=== PATIENT | female | born 1995 | race Caucasian/White ===

== ENCOUNTER 2022-08-26 16:08 | Outpatient (OUT) | payer OTHER, SELFPAY ==
[2022-08-26 17:02] LABS: HCG Quantitative 11 mIU/mL
== END 2022-08-26 16:09 ==
LOC: LAB 16:13
PROVIDERS: PCP Obstetrics & Gynecology; Visit Provider Obstetrics & Gynecology
DX: O03.9 Complete or unspecified spontaneous abortion without complication (principal)
CPT/HCPCS: 36415; 84702

== ENCOUNTER 2022-11-03 20:41 | Outpatient (REF) | payer OTHER, SELFPAY ==
[2022-11-09 15:10] LABS: Age Gdln ACOG Testing Note (.); IGP, rfx Aptima HPV ASCU Note (.)
== END 2022-11-03 20:42 | disposition home or self-care (01) ==
LOC: LAB 20:41
PROVIDERS: PCP Obstetrics & Gynecology; Visit Provider Obstetrics & Gynecology
DX: Z01.419 Encounter for gynecological examination (general) (routine) without abnormal findings (principal)
CPT/HCPCS: G0145

== ENCOUNTER 2023-11-06 20:31 | Outpatient (REF) | payer OTHER, SELFPAY | END 2023-11-06 20:32 | disposition home or self-care (01) | LOC: LAB 20:31 | PROVIDERS: PCP Obstetrics & Gynecology; Visit Provider Obstetrics & Gynecology | DX: Z01.419 Encounter for gynecological examination (general) (routine) without abnormal findings (principal) | CPT/HCPCS: 87624; 88175 ==

== ENCOUNTER 2024-11-13 20:00 | Outpatient (REF) | payer OTHER, SELFPAY ==
--- OUTSIDE RECORDS SUMMARY | 2024-11-13 14:00 | XMS_ITS | Encounter Summary ---
Author Organization [facility] Address [address] [address] Care Team Providers Care Pasteurizing Supervisor Name Role Phone Shaheen Pollard MD Primary Care Provider [phone] Reason for Visit * Reason Comments Well Women Visit Encounter Details Date Type Department Care Team (Late st Contact Info) Description 11/13/2024 2:00 PM EDT Office Visit [facility] [address] [place] [address] Josesito Sagastume DO [address] Kiran [place], [facility]11 Well woman exam with routine gynecological exam Social History Tobacco Use Types Packs/Day Years Used Date Smoking Tobacco: Never Smokeless Tobacco: Never Alcohol Use Standard Drinks/Week Comments Yes 0 (1 standard drink = 0.6 oz pur e alcohol) Occasional alcohol use Comments No Sex and Gender Information Value Date Recorded Sex Assigned at Female 11/03/2022 8:21 AM EDT Legal Sex Female 11:47 PM EDT Gender Identity Female 11/03/2022 8:21 AM EDT Sexual Orientation Straight 11/03/2022 8: 21 AM EDT documented as of this encounter Last Filed Vital Signs Vital Sign Reading Time Taken Comments Blood Pressure 120/82 11/13/2024 2:10 PM EDT Pulse - - Temperature - - Respiratory Rate - - Oxygen Saturation - - Inhaled Oxygen Concentration - - Weight 110 kg (243 lb 6.4 oz) 11/13/2024 2:10 PM EDT Height - - Body Mass Index 38.12 11/03/2022 10:01 AM EDT documented in this encounter Plan of Treatment Upcoming Encounters Date Type Department Care Team ([facility] st Contact Info) Description 11/18/2025 11:00 AM EDT Procedure Visit [facility] [address] [place] [address] Josesito Sagastume DO [address] [place] [address] Scheduled Orders Name Type Priority Associated Diagnoses Orde r Schedule Pap Smear Pathology and Cytology Routine Well woman exam with routine gynecological exam Ordered: 11/13/2024 HPV DNA probe, amplified Microbiology Routine Well woman exam with routine gynecological exam Ordered: 11/13/2024 documented as of this encounter Visit Diagnoses Diagnosis Well woman exam with routine gynecological exam Routine gynecological examination documented in this encounter Care Teams Pasteurizing Supervisor Relationship Specialty Start Date End Date Shaheen Pollard MD [address] [facility] [place] [address] PCP - General Family Medicine 11/03/22 documented as of this encounter
--- OUTSIDE RECORDS SUMMARY | 2024-11-13 20:02 | XMS_ITS | Continuity of Care Document ---
Author Name [facility] Organization [facility] Care Team Providers Care Mine Supervisor Name Role Phone [facility] Unavailable Unavailable Problems Combined list of problems from Department of Defense and Veterans Affairs facilities. It does not include entries that were removed or entered in error. Problem Status Onset Date Problem Type Date of Resolution Comments Source SKIN ABSCESS OF THE LEFT LEG Inactive 05/16/19 18 Condition DoD visit for: services physical separation Inactive 04/10/19 18 Condition DoD DERMATOPHYTOSIS TINEA PEDIS Inactive 03/11/20 17 Condition DoD Removal Of Sutures Inactive 02/14/20 17 Condition DoD ROUTINE GYNECOLOGICAL EXAM Inactive 02/09/20 17 Condition DoD OPEN WOUND OF THIGH LEFT Inactive 02/08/20 17 Condition DoD visit for: services physical Inactive 10/13/19 17 Condition DoD visit for: occupational health / fitness exam Active 10/13/19 17 Condition DoD visit for: issue repeat prescription for medication Inactive 04/05/19 17 Condition DoD ESOPHAGEAL REFLUX Inactive 02/01/20 16 Condition DoD abdominal pain Inactive 01/07/20 16 Condition DoD upper back pain (between shoulder blades) Inactive 10/19/19 15 Condition DoD PATELLOFEMORAL SYNDROME Inactive 09/19/19 15 Condition DoD KNEE SPRAIN Active 06/20/19 15 Condition DoD Laceration NEC (ICD-9-CM E928.9) Active 11/11/19 12 Condition Unknown Organization Laceration NEC (ICD-9-CM E928.9) Active Condition [facility] visit for: administrative purpose Inactive Condition DoD Contraceptives Active Condition DoD PITTED KERATOLYSIS Inactive Condition Do D visit for: follow-up exam Inactive Condition DoD OPEN WOUND OF LOWER EXTREMITY Inactive Condition DoD Need For Vaccination Human Papilloma Virus Inactive Condition DoD DIETARY CALCIUM DEFICIENCY Active Condition DoD visit for: screening exam deficiency anemia Inactive Condition DoD Patient Education Inactive Condition DoD Anticipatory Guidance: Unsafe Sexual Practices Inactive Condition DoD Dietary Counseling Pertaining To Osteoporosis Inactive Condition DoD Gynecologic Services Contraceptive General Counseling Inactive Condition DoD SUPERFICIAL INJURY - ABRASION OF THE FOOT Inactive Condition DoD Oral Contraceptives Active Condition Do D visit for: services physical accession Active Condition DoD allergy to antibiotic agents penicillins Active Condition DoD visit for: ears / hearing exam Active Condition DoD visit for: screening exam Inactive Condition DoD Allergies, Adverse Reactions, Alerts Combined list of allergies from Department of Defense and Veterans Affairs facilities. It does not include entries that were removed or entered in error. Substance Category Reaction Severity Reaction type Status Date Reported Comments Source amoxicilli n-clavulan ate Drug allergy Active One or [facility] e [facility] Facilities BATCHER OPERATOR AUGMENTIN Propensity to adverse reactions to drug (finding) active 2 [facility] AUGMENTIN (AMOXICILL IN/POTASSI UM CLAV) Drug allergy (disorder) Urticaria active 2 [facility] Immunizations Combined list of available immunizations from the Department of Defense and Veterans Affairs facilities. Immunization Series Date Given Administered By Site Reaction Lot Number CVX Code Drug Director Of Instruction Status Comments Source Influenza, seasonal, injectable 0 2015 UNK 141 Unknown (UNK) comple t ed Influenza , seasonal, injectabl e DoD anthrax vaccine 2 2015 [id number] [employer] [place] (MIP) complet ed anthrax vaccine DoD anthrax vaccine 1 2015 [id number] [facility] [place] (MIP) complet ed anthrax vaccine DoD influenza, injectable, quadrivalent, contains preservative 0 2014 [id number] 158 [employer] (SKB) complet ed influenza , injectabl e, quadrival ent, contains preservat soto DoD typhoid Vi capsular polysaccharid e vaccine 2 2014 UNK 101 Unknown (UNK) comple t ed typhoid Vi capsular polysacch aride vaccine DoD influenza, injectable, quadrivalent, contains preservative 0 2013 [id number] 158 [employer] (SKB) complet ed influenza , injectabl e, quadrival ent, contains preservat soto DoD influenza, injectable, quadrivalent, contains preservative 0 2013 [id number] 158 [employer] (SKB) complet ed influenza , injectabl e, quadrival ent, contains preservat soto DoD hepatitis A vaccine, adult dosage 2 2013 UNK 52 Unknown (UNK) comple t ed hepatitis A vaccine, adult dosage DoD Influenza, seasonal, injectable 0 2012 UNK 141 Unknown (UNK) comple t ed Influenza , seasonal, injectabl e DoD typhoid Vi capsular polysaccharid e vaccine 1 2012 UNK 101 Unknown (UNK) comple t ed typhoid Vi capsular polysacch aride vaccine DoD poliovirus vaccine, inactivated 0 2011 UNK 10 [employer] (MED) complet ed polioviru s vaccine, inactivat ed DoD influenza virus vaccine, live, attenuated, for intranasal use 0 2011 UNK 111 [employer] (MED) complet ed influenza virus vaccine, live, attenuate d, for intranasa l use DoD hepatitis A vaccine, pediatric dosage, unspecified formulation 1 2011 [id number] 31 [employer] (SKB) complet ed hepatitis A vaccine, pediatric dosage, unspecifi ed formulati on DoD yellow fever vaccine 0 2011 37 () Not Given yellow fever vaccine DoD meningococcal polysaccharid e (groups A, C, Y and W-135) diphtheria toxoid conjugate vaccine (MCV4P) 0 2011 [id number] 114 [employer] (AVB) complet ed meningoco ccal polysacch aride (groups A, C, Y and W-135) diphtheri a toxoid conjugate vaccine (MCV4P) DoD tetanus toxoid, reduced diphtheria toxoid, and acellular pertu is vaccine, adsorbed 0 2011 [id number] 115 [employer] (SKB) complet ed tetanus toxoid, reduced diphtheri a toxoid, and acellular pertussis vaccine, adsorbed DoD Vital Signs Combined list of inpatient and outpatient Vital Signs from Department of Defense and Veterans Affairs, ranging from 12 months to all on record, depending upon the facility. Vital Sign Value Date Comments Source Systolic Blood Pressure 117 mm[Hg] 11/11/19 12 14:01:03 [facility] BATCHER OPERATOR Diastolic Blood Pressure 77 mm[Hg] 11/11/2011 14:01:03 [facility] BATCHER OPERATOR Encounters Combined list of: 1) Encounters from Department of Veterans Affairs facilities going backup to the last 18 months, not all VA inpatient encounters are included; 2) Encounters from the Department of Defense facilities going backup to 280 months. Location Location Details Encounter Type Encounter Number Reason For Visit Attending Provider ADM Date DC Date Status Disposition Source [facility](Me d. Assessmen t/1523) OUTPATIENT [id number] Notes Entered by: GALINDO ALEJANDRO 07 Nov 2011 0931 ------- ------- ------- ------- -- ALLERGY AIDEE JUWANHATTIE MARIE 11/06 Released w/o Limitations [facility]( Med. Assessm ent/152 3) [facility](Au diology [facility] 1523) OUTPATIENT [id number] AWA RADER 11/06 Released w/o Limitations [facility]( Audiolo gy [facility] 1523) [facility](Op tometry [facility] 1523) OUTPATIENT [id number] Notes Entered by: LEO CARRENO 07 Nov 2011 1048 ------- ------- ------- ------- -- LEO Williamson 11/06 Released w/o Limitations [facility]( Optomet ry HC 1523) [facility](Fe male Screening 1523) OUTPATIENT [id number] MAGEN ANTONIO 11/07 Released w/o Limitations [facility] Fed [facility]( Female Screeni ng 1523) [facility] Female) OUTPATIENT [id number] NALLELY RAMOS 11/07 Released w/o Limitations [facility]( [facility] Female) [facility]([place] ([place]) 1007) OUTPATIENT [id number] RIGHT HAND LACERAT BEL [place] 11/10 Admitted [facility]( [place] (White) 1007) [facility]([place] [facility] (White) 1007) OUTPATIENT [id number] F/U [facility] BEL ANDRADE 11/10 Released with Work/Duty Limitations [facility]( [place] (White) 1007) [facility](Co urage (White) 1007) OUTPATIENT [id number] F/U BEL ANDRADE 11/13 Released with Work/Duty Limitations [facility] [place]( [place] (White) 1007) [facility](Tr eatment Room [facility] 1007) OUTPATIENT [id number] Notes Entered by: ANNETTE SANFORD 15 Nov 2011 0642 ------- ------- ------- ------- -- wound check HEIDI BURCIAGA 11/14 Released w/o Limitations [facility] [place]( Treatme nt Room [facility] 1007) [facility] [place](Tx litary Sick Call [facility] 237) OUTPATIENT [id number] skin irritat ion, bottom of feet SONJA HOOKER 02/02 Released w/o Limitations [facility] [place]( Militar y Sick Call [facility] 237) [facility] [place](Mi litary Sick Call [facility] 237) OUTPATIENT [id number] start YAMILA COTO 02/02 Released w/o Limitations [facility] [place]( Militar y Sick Call [facility] 237) [facility] [place](Mi litary Sick Call [facility] 237) OUTPATIENT [id number] Notes Entered by: CRISTI SAAB 13 Feb 2012 0825 ------- ------- ------- ------- -- OSS VENKATA FULLER 02/12 Released w/o Limitations [facility] [place]( Militar y Sick Call [facility] 237) [facility]Hearing [facility] [place]) OUTPATIENT [id number] KEVIN BARKER 07/31 Released w/o Limitations [facility](Hea ring Cons [place] Sta) [facility](Optomet ry [place]) OUTPATIENT [id number] EYE EXAM [place] 11/20 Released w/o Limitations [facility](Opt ometry [place]) Theater Facility OUTPATIENT [id number] Theater Provider 06/19 Released w/o Limitations [facility] OUTPATIENT [id number] Theater Provider 07/07 Released with Work/Duty Limitations [facility] OUTPATIENT [id number] Theater Provider 09/18 Released w/o Limitations Theater Facilit y [facility] [place] [facility]([employer]) OUTPATIENT [id number] Notes Entered by: Victor M RODRIGUEZ 25 Sep 2014 0723 ------- ------- ------- ------- -- Walk-in WILLIAM Guillen 09/25 Released w/o Limitations [facility](Phy s Ther [facility] ) [facility] [place] [facility](Emergen cy Medicine [facility]) OUTPATIENT [id number] JAYNE NIXON 10/18 Released w/o Limitations [facility](Fadumo rgency Medicin e [facility]) Theater Facility OUTPATIENT [id number] Theater Provider 10/18 Released with Work/Duty Limitations [facility] OUTPATIENT [id number] Theater Provider 08/09 Released w/o Limitations [facility] Facility OUTPATIENT [id number] Theater Provider 08/09 Released w/o Limitations [facility] Facility OUTPATIENT [id number] Theater Provider 01/06 Released w/o Limitations [facility] OUTPATIENT [id number] Theater Provider 01/31 Released w/o Limitations [facility] Theater Facility OUTPATIENT [id number] Theater Provider 04/05 Released w/o Limitations Theater Facilit y [facility] [place](Optomet ry [facility] [place]) OUTPATIENT [id number] EYE EXAM ANGELA PEARCE 07/19 Released w/o Limitations [facility](Opt ometry [facility] [place] ) [facility] [place] [facility](Operati onal [address]) OUTPATIENT [id number] Notes Entered by: AZ STARKS 20 Sep 2016 1335 ------- ------- ------- ------- -- Nausea LUISA STARKS 09/20 Released w/o Limitations [facility](Ope rationa l [address]) Theater Facility OUTPATIENT [id number] Theater Provider 10/12 Released w/o Limitations Theater [facility] Theater Facility OUTPATIENT [id number] Theater Provider 10/12 Released w/o Limitations Theater [facility] Theater Facility OUTPATIENT [id number] Theater Provider 02/08 Released w/o Limitations Theater [facility] Theater Facility OUTPATIENT [id number] Theater Provider 02/09 Released w/o Limitations [facility] Facility OUTPATIENT [id number] Theater Provider 02/13 Released w/o Limitations [facility] Facility OUTPATIENT [id number] Theater Provider 03/11 Released w/o Limitations [facility] Facility OUTPATIENT [id number] Theater Provider 04/10 Released w/o Limitations [facility] OUTPATIENT [id number] Theater Provider 05/16 Released w/o Limitations [facility] Facility OUTPATIENT [id number] Theater Provider 05/17 Released w/o Limitations Theater Facilit y Procedures Combined list of: 1) Procedures from Department of Veterans Affairs facilities going back up to thelast 18 months, not all VA non-surgical procedures are included; 2) All procedures from the Department of Defense facilities. Procedure Procedure Type Code Date Perfomer Comments Sourc e FITTING OF SPECTACLES, EXCEPT FOR APHAKIA; MONOFOCAL 2016 [facility] PRESCRIPTION DRUG, BRAND NAME 2014 DoD THERAPEUTIC PROCEDURE,1 OR MORE AREAS,EACH 15 MINUTES;NEUROMUSCUL AR REEDUCATION OF MOVEMENT,BALANCE,CO ORDINATION,KINESTHE TIC SENSE,POSTURE,AND/O R PROPRIOCEPTION FOR SITTING AND/OR STANDING ACTIVITIES 2014 [facility] OPHTHALMOLOGICAL SERVICES: MEDICAL EXAMINATION AND EVALUATION WITH INITIATION OF DIAGNOSTIC AND TREATMENT PROGRAM; COMPREHENSIVE, NEW PATIENT, 1 OR MORE VISITS 2013 DoD SCREENING TEST, PURE TONE, AIR ONLY 2013 [facility] POLIOVIRUS VACCINE, INACTIVATED (IPV), FOR SUBCUTANEOUS OR INTRAMUSCULAR USE 2011 [facility] PATIENT EDUCATION, NOT OTHERWISE CLASSIFIED, NON-PHYSICIAN PROVIDER, GROUP, PER SESSION 2011 [facility] ADENOVIRUS VACCINE, TYPE 7, LIVE, FOR ORAL USE 2011 [facility] FITTING OF SPECTACLES, EXCEPT FOR APHAKIA; MONOFOCAL 2011 [facility] PURE TONE AUDIOMETRY (THRESHOLD); AIR ONLY 2011 [facility] COLLECTION OF VENOUS BLOOD BY VENIPUNCTURE 2011 [facility] Fitting Monofocals (Not For Aphakia) [facility] Fitting Monofocals (Not For Aphakia) 64255 2016 ANNIE PEARCE Determination Of Refractive State Determination Of Refractive State 60846 2016 ANNIE PEARCE Ophthalmological New Patient Start Comprehensive Care Ophthalmological New Patient Start Comprehensive Care 14602 2016 ANNIE PEARCE Physical Therapy Neuromuscular Re-education Physical Therapy Neuromuscular Re-education 91990 2014 WILLIAM RODRIGUEZ Physical Medicine Physical Therapy Evaluation Physical Medicine Physical Therapy Evaluation 18550 2014 WILLIAM RODRIGUEZ Ophthalmological New Patient Start Comprehensive Care Ophthalmological New Patient Start Comprehensive Care 53181 2013 [place] Determination Of Refractive State Determination Of Refractive State 65208 2013 [place] Audiometry Group Testing Audiometry Group Testing 92382 2013 KEVIN BARKER Audiogram (Screening) Audiogram (Screening) 80943 2013 KEVIN BARKER Patient education, not otherwise cla ified, non-physician provider, group, per se ion 2011 ALEXI LEAVITT [facility] Fitting Monofocals (Not For Aphakia) [facility] Fitting Monofocals (Not For Aphakia) 42333 2011 LEO CARRENO Visual Function Screening Visual Function Screening 42527 2011 LEO CARRENO Audiometry Group Testing Audiometry Group Testing 88345 2011 AWA RADER Threshold Audiogram (Pure Tone) Threshold Audiogram (Pure Tone) 12398 2011 AWA RADER Release Thoracic Spinal Cord, Open Approach Release Thoracic Spinal Cord, Open Approach [id number] 2020 [facility] Fusion of 2 to 7 Thoracic Vertebral Joints with Autologous Ti ue Substitute, Posterior Approach, Posterior Column, Open Approach Fusion of 2 to 7 Thoracic Vertebral Joints with Autologous Tissue Substitute, Posterior Approach, Posterior Column, Open Approach [id number] 2020 [facility] Fusion of Thoracolumbar Vertebral Joint with Autologous Ti ue Substitute, Posterior Approach, Posterior Column, Open Approach Fusion of Thoracolumbar Vertebral Joint with Autologous Tissue Substitute, Posterior Approach, Posterior Column, Open Approach [id number] 2020 [facility] Fusion of Lumbar Vertebral Joint with Autologous Ti ue Substitute, Posterior Approach, Posterior Column, Open Approach Fusion of Lumbar Vertebral Joint with Autologous Tissue Substitute, Posterior Approach, Posterior Column, Open Approach [id number] 2020 [facility] Social History Combined list of available smoking, tobacco, and other social history from Department of Defense and Veterans Affairs facilities. Social History Type Response Date Comment Sour e Sex Representation Female (finding) 04/20/2023 Unknown Organization This section is an empty social history section. [facility] Sexual Orientation Ambula tory Pharmacy Gender identity Ambulator y Pharmacy Assessment and Plan Combined list of future care activities from Department of Defense and Veterans Affairs facilities (e.g., assessment and plan notes, appointments, orders, and referrals). Additional future care activities may be listed in the Plan of Care section. Result Assessment and Plan Date Source Assessment and Plan No data available for this section 11/14/2024 Ambulatory Pharmacy Functional Status Combined list of recent functional and cognitive assessments recorded at Department of Defense and Veterans Affairs (VA).VA Functional Terry Measurement (FIM) Scale: 1 = Total Assistance (Subject = 0% +), 2 = Maximal Assistance (Subject = 25% +), 3 = Moderate Assistance (Subject = 50% +), 4 = Minimal Assistance (Subject = 75% +), 5 = Supervision, 6 = Modified Terry (Device), 7 = Complete Terry (Timely, Safely). Assessment Date/Time Source Assessment Type Assessment Skill Assessment Score Assessment Details No data available for this section
--- OUTSIDE RECORDS SUMMARY | 2024-11-13 20:03 | XMS_ITS | Encounter Summary ---
Author Organization [facility] Address [address] [place] [address] Care Team Providers Care Art Handler Name Role Phone Shaheen Pollard MD Primary Care Provider [phone] Encounter Details Date Type Department Care Team (Late Contact Info) Description 11/14/2023 Orders Only [facility] [address] [place] [id number] [place], [place] [address] [place] [address] Social History Tobacco Use Types Packs/Day Years [...] AM EDT documented as of this encounter Plan of Treatment Upcoming Encounters Date Type Department Care Team (Late Contact Info) Description 11/18/2025 11:00 AM EDT Procedure Visit [facility] [address] [place] [address] Josesito Sagastume DO [address] [facility] [address] [place] [id number] documented as of this encounter Procedures Procedure Name Priority Date/Time Associated Diagnosis Comments PAP SMEAR Routine 11/06/2023 12:00 AM EDT documented in this encounter Results * Pap Smear (11/06/2023 12:00 AM EDT) Swab Cervical swab / Unknown us Josesito Tanika DO LAB CYTOLOGY ORDERABLES Final Re sult EXTERNAL LAB documented in this encounter Visit Diagnoses Not on filedocumented in this encounter Care Teams Art Handler Relationship Specialty Start Date End Date Shaheen Pollard MD [address] [place] [address] PCP - General Family Medicine 11/03/22 documented as of this encounter
--- OUTSIDE RECORDS SUMMARY | 2024-11-13 20:03 | XMS_ITS | Encounter Summary ---
Author Organization [facility] Address [address] [place] [address] Care Team Providers Care Gang Miner Name Role Phone Shaheen Pollard MD Primary Care Provider [phone] Encounter Details Date Type Department Care Team (Late Contact Info) Description 11/13/2024 Bamboo flowsheet [facility] [address] [facility] [place] [address] Josesito Sagastume DO [address], [place] [address] Social History Tobacco Use Types Packs/Day Years [...] AM EDT Procedure Visit [facility] [address] [place] [address] Josesito Sagastume, DO [address], [facility] documented as of this encounter Visit Diagnoses Not on filedocumented in this encounter Care Teams Gang Miner Relationship Specialty Start Date End Date Shaheen Pollard MD [address] [place] [address] PCP - General Family Medicine 11/03/22 documented as of this encounter
--- OUTSIDE RECORDS SUMMARY | 2024-11-13 20:03 | XMS_ITS | CCD ---
Author Organization [facility] Care Team Providers Care Supervisor [employer] Name Role Phone PAY ., DR HIGGINBOTHAM Consulting Unavailable PAY ., DR HIGGINBOTHAM Attending Unavailable PAY ., DR HIGGINBOTHAM Admitting Unavailable TANIKA ., DR NIX Primary Care Unavailable TANIKA ., DR NIX Attending Unavailable REQUEST, DR NEYDA LISTED Consulting Unavaila ble TANIKA ., DR NIX Admitting Unavailable TANIKA ., DR NIX Primary Care Unavailable PAY ., DR HIGGINBOTHAM Consulting Unavailable PAY ., DR HIGGINBOTHAM Attending Unavailable HOY ., DR DIANA Primary Care Unavailable PAY ., DR HIGGINBOTHAM Admitting Unavailable VALDEZ ., MR AGUILERA Consulting Unavailable ISMAEL JAIMES Consulting Unavailable HOY ., DR DIANA Primary Care Unavailable TANIKA ., DR NIX Attending Unavailable TANIKA ., DR NIX Admitting Unavailable TANIKA ., DR NIX Consulting Unavailable TANIKA ., DR NIX Attending Unavailable TANIKA ., DR NIX Admitting Unavailable TANIKA ., DR NIX Primary Care Unavailable TANIKA ., DR NIX Consulting Unavailable TANIKA, BOYD Attending Unavailable DARNELL FERNANDEZ Attending Unavailable Adalgisa Pollard MD Primary Care Provider [phone] Adalgisa Pollard MD Primary Care Provider [phone] Allergies Allergy Classification Reported Allergen(s) Allergy Type Date of Onset Reaction(s) Facility (1 source) Amoxicillin / Clavulanate Drug Allergy [facility] Repository (5 sources) Amoxicillin-Pot Clavulanate Drug Allergy 11-07-2011 Hives [facility] Problems Active Problems Problem Classification Problem Date Documented Da te Episodic/Chronic Hemorrhage during ; abruptio placenta; placenta previa (4 sources) Threatened ; Translations: [THREATENED ] Onset: 08-01-2022 Episodic Other skin disorders (2 sources) Seborrheic keratosis; Translations: [Other seborrheic keratosis] 12-22-2023 Episodic Past or Other Problems Problem Classification Problem Date Documented Date Episodic/Chronic Immunizations and screening for infectious disease (1 source) Encounter for screening for human papillomavirus (HPV); Translations: [ENC SCREENING HUMAN PAPILLOMAVIRUS] Onset: 09-02-2021 Episodic Other screening for suspected conditions (not mental disorders or infectious disease) (4 sources) Encounter for screening for malignant neoplasm of cervix; Translations: [ENC SCREENING MALIG NEOPLASM CERV] Onset: 08-30-2021 Episodic Results Test Name Value Interpretation Reference Range Facility IGP,APTIMA HPV,AGE GDLNon AGE GDLN ACOG TESTING Note . [facility] Comment on above: TESTS RESULT FLAG UN ITS REF RANGE LAB Clinician Provided Cytology Information Source.............Cervix;Endocervix No. of containers..01 ThinPrep Vial Age Algo ACOG Aislinn... 30-65 01 FLAG LEGEND: L-Low Normal,H-High Normal,LL-Alert Low,HH-Alert High <-Panic Low,>-Panic High,A-Abnormal,AA-Critical Abnormal Performed at: 01 =G [address] [id number] Elizabeth Burleson MD, HPV APTIMA Positive Abnormal Negative [facility] Comment on above: This nucleic acid am plification test detects fourteen high- risk HPV types (16,18,31,33,35,39,45,51,52,56,58,59,66,68) without differentiation. HPV GENOTYPE 16 Negative Negative [facility] HPV GENOTYPE 18,45 Negative Negative [facility] Comment on above: Performed at: =G - [facility] [address] [id number] Event Planner: Elizabteh Burleson MD, Phone: [phone] Performed at: WB - [facility] [address], [place] [id number] Event Planner: Elizabeth Burleson MD, Phone: [phone] IGP, APTIMA HPV, RFX 16/18,45 Note . [facility] Comment on above: TESTS RESULT FLAG U NITS REF RANGE LAB DIAGNOSIS: 02 NEGATIVE FOR INTRAEPITHELIAL LESION OR MALIGNANCY. Specimen adequacy: 02 Satisfactory for evaluation. Endocervical and/or squamous metaplastic cells (endocervical component) are present. Performed by: Rolando Collado, Iron Piler ([facility]) . 02 Note: Note 02 The Pap smear is a screening test designed to aid in the detection of premalignant and malignant conditions of the uterine cervix. It is not a diagnostic procedure and should not be used as the sole means of detecting cervical cancer. Both false-positive and false-negative reports do occur. Test Methodology: Note 02 This liquid based ThinPrep(R) pap test was screened with the use of an image guided system. HPV Genotype Reflex Note 02 Criteria met, see HPV Genotype results. FLAG LEGEND: L-Low Normal,H-High Normal,LL-Alert Low,HH-Alert High <-Panic Low,>-Panic High,A-Abnormal,AA-Critical Abnormal Performed at: 02 WB [facility] [address] [place] [address] Elizabeth Burleson MD, Interpretation and review of laboratory results Abnormal [facility] BRUSH-SPATULA CERVIX ENDOCERVIX [facility] PREG QUANT HCGon 08-08-2022 HCG QUANT 129 mIU/mL Normal [facility] Comment on above: Performed By: #### P REGQNT #### [facility] [address] [place] [address] Dr. Maxwell Collins HCG RANGE SEE BELOW Normal [facility] Comment on above: Result Comment: 5-50 0.2-1 WEEK 50-500 1-2 WEEKS 100-5,000 2-3 WEEKS 500-10,000 3-4 WEEKS 1,000-50,000 4-5 WEEKS 10,000-100,000 5-6 WEEKS 15,000-200,000 6-8 WEEKS 10,000-100,000 2-3 MONTHS Performed By: #### P REGQNT #### [facility] [address] [place] [address] Dr. Maxwell Collins PREG QUANT HCGon 08-01-2022 HCG QUANT 154 mIU/mL Normal [facility] Comment on above: Performed By: #### P REGQNT #### [facility] [address] [place] [address] Dr. Maxwell Collins HCG RANGE SEE BELOW Normal [facility] Comment on above: Result Comment: 5-50 0.2-1 WEEK 50-500 1-2 WEEKS 100-5,000 2-3 WEEKS 500-10,000 3-4 WEEKS 1,000-50,000 4-5 WEEKS 10,000-100,000 5-6 WEEKS 15,000-200,000 6-8 WEEKS 10,000-100,000 2-3 MONTHS Performed By: #### P REGQNT #### [facility] [address] [place] [address] Dr. Maxwell Collins ABO AND RH TYPEon 07-29-2022 ABO and Rh group Nom (Bld) ABO Rh Typing O Rh Negative Normal [facility] Comment on above: Performed By: #### A TAMMY #### [facility] [address] [place] [address] Dr. Maxwell Collins CBC AUTO DIFFon 07-29-2022 BASO # 0.0 103/ul Normal 0.0-0.1 [facility] Comment on above: Performed By: #### C BC #### [facility] [address] [place] [address] Dr. Maxwell Collins Basophils/100 WBC (Bld) 0.2 % Normal 0.2-2.0 [facility] Comment on above: Performed By: #### C BC #### [facility] [address] [place] [address] Dr. Maxwell Collins EO # 0.0 103/ul Normal 0.0-0.7 [facility] Comment on above: Performed By: #### C BC #### [facility] [address] [place] [address] Dr. Maxwell Collins Eosinophils/100 WBC (Bld) 0.6 % Critically low 0.9-7.0 [facility] Comment on above: Performed By: #### C BC #### [facility] [address] [place] [address] Dr. Maxwell Collins Erythrocyte distribution width (RBC) [Ratio] 14.1 % Normal 11.0-15.0 [facility] Comment on above: Performed By: #### C BC #### [facility] [address] [place] [address] Dr. Maxwell Collins Hematocrit (Bld) [Volume fraction] 42.2 % Normal 36.0-48.0 [facility] Comment on above: Performed By: #### C BC #### [facility] [address] [place] [address] Dr. Maxwell Collins Hemoglobin (Bld) [Mass/Vol] 14.0 g/dL Normal 12.0-16.0 [facility] Comment on above: Performed By: #### C BC #### [facility] [address] [place] [address] Dr. Maxwell Collins IG # 0.01 10e3/ul Normal 0.00-0.03 [facility] Comment on above: Performed By: #### C BC #### [facility] [address] [place] [address] Dr. Maxwell Collins IG % 0.2 % Normal 0.0-0.5 [facility] Comment on above: Performed By: #### C BC #### [facility] [address] [place] [address] Dr. Maxwell Collins LYMPH # 2.3 103/ul Normal 1.2-3.8 [facility] Comment on above: Performed By: #### C BC #### [facility] [address] [place] [address] Dr. Maxwell Collins Lymphocytes/100 WBC (Bld) 37.5 % Normal 20.5-60.0 [facility] Comment on above: Performed By: #### C BC #### [facility] [address] [place] [address] Dr. Maxwell Collins MANUAL DIFF REQ NO Normal [facility] Comment on above: Performed By: #### C BC #### [facility] [address] [place] [address] Dr. Maxwell Collins MCH (RBC) [Entitic mass] 29.3 pg Normal 26.7-34.0 [facility] Comment on above: Performed By: #### C BC #### [facility] [address] [place] [address] Dr. Maxwell Collins MCHC (RBC) [Mass/Vol] 33.2 g/dL Normal 29.9-35.2 [facility] Comment on above: Performed By: #### C BC #### [facility] [address] [place] [address] Dr. Maxwell Collins MCV (RBC) [Entitic vol] 88.3 fL Normal 81.0-99.0 [facility] Comment on above: Performed By: #### C BC #### [facility] [address] [place] [address] Dr. Maxwell Collins MONO # 0.4 103/ul Normal 0.3-0.8 [facility] Comment on above: Performed By: #### C BC #### [facility] [address] [place] [address] Dr. Maxwell Collins Monocytes/100 WBC (Bld) 6.3 % Normal 1.7-12.0 [facility] Comment on above: Performed By: #### C BC #### [facility] [address] [place] [address] Dr. Maxwell Collins NEUT # 3.4 103/ul Normal 1.4-6.5 [facility] Comment on above: Performed By: #### C BC #### [facility] [address] [place] [address] Dr. Maxwell Collins Neutrophils/100 WBC (Bld) 55.2 % Normal 43.0-75.0 [facility] Comment on above: Performed By: #### C BC #### [facility] [address] [place] [address] Dr. Maxwell Collins Platelet mean volume (Bld) [Entitic vol] 10.0 fL Normal 9.5-13.5 [facility] Comment on above: Performed By: #### C BC #### [facility] [address] [place] [address] Dr. Maxwell Collins PLT 243 103/ul Normal 150-450 [facility] Comment on above: Performed By: #### C BC #### [facility] [address] [place] [address] Dr. Maxwell Collins RBC 4.78 106/ul Normal 4.20-5.40 [facility] Comment on above: Performed By: #### C BC #### [facility] [address] [place] [address] Dr. Maxwell Collins WBC 6.2 103/ul Normal 4.0-11.0 [facility] Comment on above: Performed By: #### C BC #### [facility] [address] [place] [address] Dr. Maxwell Collins ER URINE PROFILEon 05-05-202 3 Bilirubin Ql (U) Negative Normal NEGATIVE [facility] Comment on above: Performed By: #### E RUR, UMICRO, PREGU #### [facility] [address] [place] [address] Dr. Maxwell Collins Clarity (U) CLEAR Normal CLEAR [facility] Comment on above: Performed By: #### E RUR, UMICRO, PREGU #### [facility] [address] [address] [address] Maxwell Collins Color (U) LT. YELLOW Normal YELLOW [facility] Comment on above: Performed By: #### E RUR, UMICRO, PREGU #### [facility] [address] [address] [address] Maxwell BARRETO A micrscopic examina tion will be performed if indicated. Normal [facility] Comment on above: Performed By: #### E RUR, UMICRO, PREGU #### [facility] [address] [place] [address] Dr. Maxwell Collins Glucose Ql (U) Negative Normal NEGATIVE [facility] Comment on above: Performed By: #### E RUR, UMICRO, PREGU #### [facility] [address] [place] [address] Dr. Maxwell Collins Hemoglobin Ql (U) LARGE Abnormal NEGATIVE [facility] Comment on above: Performed By: #### E RUR, UMICRO, PREGU #### [facility] [address] [address] [address] Maxwell Collins Ketones Ql (U) TRACE Abnormal NEGATIVE [facility] Comment on above: Performed By: #### E RUR, UMICRO, PREGU #### [facility] [address] [address] [address] Maxwell Collins LEUKOCYTES Negative Normal NEGATIVE [facility] Comment on above: Performed By: #### E RUR, UMICRO, PREGU #### [facility] [address] [place] [address] Dr. Maxwell Collins Nitrite Ql (U) Negative Normal NEGATIVE [facility] Comment on above: Performed By: #### E CRICKET LEPERO, PREGU #### [facility] [address] [address] [address] Maxwell Collins pH (U) 6.0 [pH] Normal 5-9 [facility] Comment on above: Performed By: #### E YUNG LEPEICRO, PREGU #### [facility] [address] [address] [address] Maxwell Collins SPEC GRAVITY 1.020 Normal 1.005-<=1.025 [facility] Comment on above: Performed By: #### Thompson RUYUNG DowICVIKAS, PREGU #### [facility] [address] [address] [address] Maxwell Collins UA PROTEIN Negative Normal NEGATIVE/ TRACE [facility] Comment on above: Performed By: #### GORDON BALLARD, PREGU #### [facility] [address] [place] [address] Dr. Maxwell Collins UR MICRO IND INDICATED Normal [facility] Comment on above: Performed By: #### GORDON BALLARD, PREGU #### [facility] [address] [address] [address] Maxwell Collins Urobilinogen Qn (U) 0.2 {Marci'U}/dL Normal 0.2 - 1. 0 [facility] Comment on above: Performed By: #### GORDON BALLARD, PREGU #### [facility] [address] [address] [address] Maxwell Collins PREG QUANT HCGon 07-29-2022 HCG QUANT 135 mIU/mL Normal [facility] Comment on above: Performed By: #### P REGQNT #### [facility] [address] [place] [address] Dr. Maxwell Collins HCG RANGE SEE BELOW Normal [facility] Comment on above: Result Comment: 5-50 0.2-1 WEEK 50-500 1-2 WEEKS 100-5,000 2-3 WEEKS 500-10,000 3-4 WEEKS 1,000-50,000 4-5 WEEKS 10,000-100,000 5-6 WEEKS 15,000-200,000 6-8 WEEKS 10,000-100,000 2-3 MONTHS Performed By: #### P REGQNT #### [facility] [address] [address] [address] Maxwell Collins URon 07-29-2022 , QUAL Positive Abnormal NEGATIVE [facility] Comment on above: Performed By: #### GORDON BALLARD, PREGU #### [facility] [address] [address] [address] Maxwell Collins URINE MICROSCOPIC ONLYon BACTERIA TRACE Abnormal NONE SEEN [facility] Comment on above: Performed By: #### GORDON BALLARD, PREGU #### [facility] [address] [place] [address] Dr. Maxwell Collins Bacteria identified Cx Nom (U) NOT INDICATED Normal [facility] Comment on above: Performed By: #### GORDON BALLARD, PREGU #### [facility] [address] [address] [address] Maxwell Collins CAST NONE SEEN Normal NONE SEEN [facility] Comment on above: Performed By: #### GORDON BALLARD, PREGU #### [facility] [address] [place] [address] Dr. Maxwell Collins Crystals LM Nom (Urine sed) NONE SEEN Normal NONE SEEN [facility] Comment on above: Performed By: #### GORDON BALLARD, PREGU #### [facility] [address] [address] [address] Maxwell Collins Epithelial cells LM Ql (Urine sed) RARE Normal NONE SEEN /RARE [facility] Comment on above: Performed By: #### GORDON BALLARD, PREGU #### [facility] [address] [place] [address] Dr. Maxwell Collins MUCOUS NONE SEEN Normal NONE SEEN [facility] Comment on above: Performed By: #### YUNG BALLARDICVIKAS, PREGU #### [facility] [address] [place] [address] Dr. Maxwell Collins RBC 5-10 Abnormal 0-2 [facility] Comment on above: Performed By: #### E RUGORDON Dow, PREGU #### [facility] [address] [address] [address] Maxwell Collins WBC NONE SEEN Normal NONE SEEN [facility] Comment on above: Performed By: #### E RURYUNGICRO, PREGU #### [facility] [address] [place], [place] [address] Dr. Maxwell Collins US PREG TVon 07-29-2022 US PREG TV EXAM: OB ultrasound HISTORY: . Pain . COMPARISON: None. TECHNIQUE: Transvaginal scanning was performed. FINDINGS: Scanning of the pelvis demonstrates the uterus to measurerrr 8.3 x 3.6 cm. Endometrial complex measures 7 mm. There is slight heterogeneity of the echotexture of the endometrial complex. No masses are noted. Specifically there is no evidence of an intrauterine greater than 3-4 weeks menstrual age. Right ovary measures 4.1 x 2.5 x 2.6 cm. Color-flow is noted. Within the right ovary there is a 1 cm avascular cyst. This could represent a corpus luteal cyst. Left ovary measures 1.6 x 1.9 x 1.6 cm. Color-flow is noted. No masses are noted. No fluid is noted in the cul-de-sac. IMPRESSION: 1 uterus demonstrates the endometrial complex to measure 7 mm. There is slight heterogeneity of the endometrial complex. No discrete masses are noted. There is no evidence of an intrauterine greater than 3-4 weeks menstrual age. Findings could be due to a very early intrauterine or possibly a complete AB. There is no evidence ultrasonographically of an ectopic . 2. Normal-appearing left ovary. 3. 1 cm cyst within the right ovary. This could represent a corpus luteal cyst. 4. Correlation with a quantitative beta hCG is suggested. Electronically authenticated by: ISMAEL JAIMES Date: 2022-07-29 17:54 Normal [facility] PAP ACOG PANEL 2: 21 to 29on 09-02-2021 . . Normal [facility] Comment on above: Performed By: #### [id number] #### [facility] [address] [address] [address] Maxwell Collins Age Gdln ACOG Testing 21-29 Normal [facility] Comment on above: Performed By: #### [id number] #### [facility] [address] [place] [address] Dr. Maxwell Collins DIAGNOSIS: Comment [facility] Comment on above: Result Comment: NEGA TIVE FOR INTRAEPITHELIAL LESION OR MALIGNANCY. Performed By: #### [id number] #### [facility] [address] [place] [address] Dr. Maxwell Collins Methodology: Comment Normal [facility] Comment on above: Result Comment: This liquid based ThinPrep(R) pap test was screened with the use of an image guided system. Performed By: #### [id number] #### [facility] [address] [place] [address] Dr. Maxwell Collins Note: Comment [facility] Comment on above: Result Comment: The Pap smear is a screening test designed to aid in the detection of premalignant and malignant conditions of the uterine cervix. It is not a diagnostic procedure and should not be used as the sole means of detecting cervical cancer. Both false-positive and false-negative reports do occur. . Performed By: #### [id number] #### [facility] [address] [place] [address] Dr. Maxwell Collins Performed by: Comment Normal [facility] Comment on above: Result Comment: Chetna Moreno, Iron Piler ([facility]) Performed By: #### [id number] #### [facility] [address] [place] [address] Dr. Maxwell Collins Reflex Criteria: Comment Normal [facility] Comment on above: Result Comment: The HPV DNA reflex criteria were not met with this specimen result therefore, no HPV testing was performed. . Performed By: #### [id number] #### [facility] [address] [place] [address] Dr. Maxwell Collins Specimen adequacy: Comment Normal [facility] Comment on above: Result Comment: Sati sfactory for evaluation. Endocervical and/or squamous metaplastic cells (endocervical component) are present. Performed By: #### [id number] #### [facility] [address] [address] [address] Maxwell Collins Encounters Encounter Date Encounter Type Care Provider Facility Start: 11-13-2024 End: 11-13-2024 Bamboo flowsheet Boyd Tanika DO Work Phone: [facility] Start: 11-13-2024 End: 11-13-2024 Bamboo flowsheet Boyd Tanika DO Work Phone: [facility] Start: 12-22-2023 End: 12-22-2023 Bamboo flowsheet Darnell Northeim PA Work Phone: [facility] Start: 12-22-2023 End: 12-22-2023 Bamboo flowsheet Darnell Northeim PA Work Phone: [facility] Start: 12-22-2023 End: 12-22-2023 Office outpatient new 20 minutes Darnell Northeim PA Work Phone: [facility] Comment on above: Seborrheic keratosis (Primary Dx) Start: 12-22-2023 End: 12-22-2023 ambulatory DARNELL NORTHEIM Not Available Start: 11-06-2023 End: 11-13-2023 [facility] Result Encounter Boyd Tanika DO Work Phone: [facility] Unsolicited Start: 11-06-2023 End: 11-13-2023 [facility] Result Encounter Boyd Tanika DO Work Phone: [facility]solic[facility] Start: 11-06-2023 End: 11-06-2023 ambulatory BOYD CLARKO Not Available Start: 08-18-[address] BOYD SAGASTUME . Facili ty:[facility] Start: 08-08-2022 End: 08-09-[address] BOYD SAGASTUME . Facility:[facility] Start: 08-01-2022 End: 08-02-[address] NEFTALY LEVIN . Facility:[facility] Start: 07-29-2022 End: 07-29-[address] NFETALY LEVIN . Facility:[facility] Start: 08-30-2021 End: 08-30-[address] ADALGISA POLLARD . Facility: Procedures Date Procedure Procedure Detail Performing Clinician Start: 11-06-2023 IGP,APTIMA HPV,AGE GDLN Boyd Sagastume DO Work Phone: Plan of Treatment Date Care Activity Detail Author Start: 11-13-2024 End: 11-13-2024 Patient encounter procedure [facility] Comment on above: Arrived Start: 12-22-2023 End: 12-22-2023 Patient encounter procedure [facility] Comment on above: Arrived Payers Date Payer Category Payer Managed Care HMO (unspecified) [id number] 1993 Unknown [id number] 2.16.84 [id number] 1993 Unknown [id number] 2.16.84 [id number] 1993 Unknown [id number] 2.16.84 [id number] 1993 Unknown [id number] 2.16.84 [id number] 1993 Unknown [id number] 2.16.84 [id number] 1993 Unknown [id number] 1993 Unknown [id number] 1959 Private Health Insurance [id number] 1961 Unknown [id number] Social History Date Type Detail Facility [facility]: [facility] Start: 11-01-2022 Tobacco use and exposure Smokeless t obacco non-user [facility] Start: 11-06-2023 End: 12-22-2023 Alcoholic beverage intake Current drinker of alcohol (finding) [facility] Start: 11-06-2023 End: 12-22-2023 History of Social function [facility] Start: 11-06-2023 End: 12-22-2023 Tobacco use panel [facility] Start: 11-01-2022 Alcohol Comment Occasional alcohol u se [facility] Start: 1995 Sex assigned at Female [facility] Start: 11-03-2022 Gender identity Identifies as female gender (finding) [facility] Start: 11-03-2022 Sexual orientation Heterosexual (fin ding) [facility] History of Present illness Narrative 12-22-2023 POLLO Marcus - 12/22/2023 12:30 PM EDT Note Date & Type Note Facility 12-22-2023 History of Presen t illness Narrative Lesions: Location: left lower back Duration: 4-5 months Quality: denies pain, denies itch, denies bleeding Modifying factors: rubs on clothing Associated symptoms: non-healing Treatments: none New patient All pertinent medical history, medications, and allergies were reviewed. General Exam: alert , oriented to person, place, and time , normal affect, well appearing Unaccompanied A focused exam completed based on patient reported problems, see below: 1. Seborrheic keratosis Left Lower Back Stuck on verrucous, colbert-brown papules and plaques. Patient was counseled regarding these benign growths. Removal is normally not necessary, but they may be removed if they are symptomatic or for cosmetic reasons. Follow up as needed for new/changing lesions. Next Visit: prn for any new/changing lesions documented in this encounter [facility] Evaluation note Note Date & Type Note Facility Evaluation note Diagnosis Seborrheic keratosis- Primary documented in this encounter [facility] Summary Purpose Family History No Family History Records FoundNo Family History Records Found Advance Directives No Advanced Directives Records FoundNo Advanced Directives Records Found Additional Source Comments INFORMATION SOURCE (unrecogn ized section and content) DATE CREATED AUTHOR 08/08/2022 [facility] DATE CREATED AUTHOR 'S ORGANIZ ATION 12/23/2023 [facility] Care Teams (unrecognized sec tion and content) Supervisor Refractory Products Relationship Specialty Start Date End Date Adalgisa Pollard MD [address] [place] [address] PCP - General Family Medicine 11/03/22 Supervisor Refractory Products Relationship Specialty Start Date End Date Adalgisa Pollard MD [address] [place] [address] PCP - General Family Medicine 11/03/22 Supervisor Refractory Products Relationship Specialty Start Date End Date Adalgisa Pollard MD [address] [place] [address] PCP - General Family Medicine 11/03/22 Reason for Visit (unrecogniz ed section and content) Reason Comments Suspicious Skin Lesion FOR RECORDS PERTAINING TO PATIENTS WHO ARE OR HAVE BEEN ENROLLED IN A CHEMICAL DEPENDENCY/SUBSTANCEABUSE PROGRAM, SOME INFORMATION MAY BE OMITTED. This clinical summary was aggregated from multiple sources. Caution should be exercised in using it in the provision of clinical care. This summary normalizes information from multiple sources, and as a consequence, information in this document may materially change the coding, format and clinical context of patient data. In addition, data may be omitted in some cases. CLINICAL DECISIONS SHOULD BE BASED ON THE PRIMARY CLINICAL RECORDS. [facility] [employer] [facility]. provides no warranty or guarantee of the accuracy or completeness of information in this document.
--- OUTSIDE RECORDS SUMMARY | 2024-11-13 20:03 | XMS_ITS | Clinical Summary ---
Author Organization [facility]atas [facility] Address [id number] [address] [place] [address] Care Team Providers Care Grocery Bagger Name Role Phone Shaheen Pollard MD Primary Care Provider [phone] Allergies Active Allergy Reactions Criticality Noted Date Comments Amoxicillin-Pot Clavulanate 08/02/19 21 Medications acetaminophen (TYLENOL EXTRA STRENGTH) 500 mg tablet Take 2 tablets (1,000 mg total) by mouth every 6 (six) hours. 30 tablet 1 Active Additional Information Patient not taking.Reported on 12/28/2020 gabapentin (NEURONTIN) 600 mg tabletIndication s:Closed fracture of twelfth thoracic vertebra, unspecified fracture morphology, initial encounter ([facility]) Take 0.5 tablets (300 mg total) by mouth 3 (three) times a day. 90 tablet 1 Active Additional Information Patient not taking.Reported on 12/28/2020 polyethylene glycol (GLYCOLAX) 17 gram packet Take 17 g by mouth 2 (two) times a day. 10 packet 1 1 Active Additional Information Patient not taking.Reported on 12/28/2020 sennosides-docus ate sodium (SENOKOT-S) 8.6-50 mg Take 2 tablets by mouth nightly. 20 tablet 1 Active Additional Information Patient not taking.Reported on 12/28/2020 cyclobenzaprine HCl (FLEXERIL ORAL) Take by mouth. Activ e Active Problems Problem Noted Date Diagnosed Date Closed fracture of twelfth thoracic vertebra 11/2020 Immunizations Immunization Administration Dates Next Due H1N1 Inj Preservative Free 02/03/2009 Influenza, Injectable, Mdck, Preservative Free, Quad 01/23/2018 Social History Tobacco Use Types Packs/Day Years Used Date Smoking Tobacco: Never Smokeless Tobacco: Never Comments No Sex and Gender Information Value Date Recorded Sex Assigned at Not on file Legal Sex Female 10:26 PM EDT Gender Identity Not on file Sexual Orientation Not on file Last Filed Vital Signs Vital Sign Reading Time Taken Comments Blood Pressure 129/78 08/06/2020 8:01 AM EDT Pulse 92 08/06/2020 8:01 AM EDT Temperature 36.8 C (98.2 F) 08/06/2020 8:01 AM EDT Respiratory Rate 19 08/06/2020 8:01 AM EDT Oxygen Saturation 97% 08/06/2020 8:01 AM EDT Inhaled Oxygen Concentration - - Weight 95.3 kg (210 lb) 08/02/2020 3:53 PM EDT Height 175.3 cm (5' 9 ) 08/02/2020 3:53 PM EDT Body Mass Index 31.01 08/02/2020 3:53 PM EDT Plan of Treatment Health Maintenance Due Date Last Done Comments Depression Screening 2005 Tobacco Screening 2005 Adult BMI Screening 08/20/2011 DTaP,Tdap and Td Vaccines (1 - Tdap) 2012 Pap Smear 2014 Influenza Vaccine 11/25/2024 01/23/2018, 02/03/2009 Goals Goal Patient Goal Type Associated Problems Recent Progress Patient-Stated? Author <enter goal here> General Yes Barbara Barroso LSW Note: Evaluation of progress towards goal: Discharge needs to be determined. Medical Devices Implanted Type Area Aircraft Landing Gear Inspector Device Identifier Shelf Expiration Date Model / Serial / Lot Gft Bn Pliafx 5cc Fbr Dmnr Rpl [id number] - Sna - [id number] Implanted:Qty : 1 on 08/02/2020 by Ezekiel Villarreal MD at [facility] Graft N/A: Spine Thoracic [employer] 02/26/2025 [id number] / NA / [id number] Plt Bn 47-60mm Solera Mlspn - Sna - [id number] Implanted:Qty : 1 on 08/02/2020 by Ezekiel Villarreal MD at [facility] Plate N/A: Spine Thoracic [employer] [id number] / NA / NA Trevor Spnl 120x4.75mm Ns Curv - [id number] Implanted:Qty : 2 on 08/02/2020 by Ezekiel Villarreal MD at [facility] Trevor N/A: Spine Thoracic [employer] [id number] / / Scr Bn 40x4.5mm 2 Ld Ma Clr - [id number] Implanted:Qty : 4 on 08/02/2020 by Ezekiel Villarreal MD at [facility] Screw N/A: Spine Thoracic [employer] [id number] / / Scr Bn 50x4.5mm 2 Ld Ma Clr - [id number] Implanted:Qty : 2 on 08/02/2020 by Ezekiel Villarreal MD at [facility] Screw N/A: Spine Thoracic [employer] [id number] / / Scr Bn 50x5x4.75mm Ma Cnn - [id number] Implanted:Qty : 2 on 08/02/2020 by Ezekiel Villarreal MD at [facility] Screw N/A: Spine Thoracic [employer] [id number] / / Scr Set Spne - [id number] Implanted:Qty : 8 on 08/02/2020 by Ezekiel Villarreal MD at [facility] Screw N/A: Spine Thoracic [employer] [id number] / / Insurance [employer] Advance Directives * Full Code (Latest Code Status on File) Date Activated Date Inactivated Comments 08/02/2020 8:54 AM 08/06/2020 2:52 PM Care Teams Grocery Bagger Relationship Specialty Start Date End Date Shaheen Pollard MD PCP - General Family Medicine 08/02/20
--- OUTSIDE RECORDS SUMMARY | 2024-11-13 20:03 | XMS_ITS | Clinical Summary ---
Author Organization [facility] Address [address] [place] [address] Care Team Providers Care Dice Dealer Name Role Phone Shaheen Pollard MD Primary Care Provider [phone] Allergies Active Allergy Reactions Criticality Noted Date Comments Amoxicillin-Pot Clavulanate Hives 11/07/19 12 Medications No known medications Active Problems No known active problems Encounters Date Type Department Care Team Description 11/13/2024 2:00 PM EDT Office Visit [facility] [address] [place] [address] Josesito Sagastume DO Well woman exam with routine gynecological exam 11/13/2024 Bamboo flowsheet [facility] [address] [facility] [place] [address] Josesito Sagastume DO from Last 3 Months Family History Medical History Relation Name Comments Cancer Father Cancer Maternal Grandmother Cancer Paternal Grandfather Heart disease Paternal Grandfather Cancer Paternal Grandmother Relation Name Status Comments Father Maternal Grandmother Paternal Grandfather Paternal Grandmother Social History Tobacco Use Types Packs/Day Years Used Date Smoking Tobacco: Never Smokeless Tobacco: Never Tobacco Cessation:Counseling Given: Not Answered Alcohol Use Standard Drinks/Week Comments Yes 0 (1 standard drink = 0.6 oz pur e alcohol) Occasional alcohol use Comments No Sex and Gender Information Value Date Recorded Sex Assigned at Female 11/03/2022 8:21 AM EDT Legal Sex Female 11:47 PM EDT Gender Identity Female 11/03/2022 8:21 AM EDT Sexual Orientation Straight 11/03/2022 8: 21 AM EDT Last Filed Vital Signs Vital Sign Reading Time Taken Comments Blood Pressure 120/82 11/13/2024 2:10 PM EDT Pulse - - Temperature - - Respiratory Rate - - Oxygen Saturation - - Inhaled Oxygen Concentration - - Weight 110 kg (243 lb 6.4 oz) 11/13/2024 2:10 PM EDT Height 170.2 cm (5' 7 ) 11/03/2022 10:01 AM EDT Body Mass Index 38.12 11/03/2022 10:01 AM EDT Plan of Treatment Upcoming Encounters Date Type Department Care Team (Late st Contact Info) Description 11/18/2025 11:00 AM EDT Procedure Visit [facility] [address] [facility] [place] [address] Josesito Sagastume DO [address] [place] [address] Insurance [employer] [facility] Address: [facility] [id number] [place] [phone] Care Teams Dice Dealer Relationship Specialty Start Date End Date Shaheen Pollard MD [address] [facility] [place] [phone] PCP - General Family Medicine 11/03/22
--- OUTSIDE RECORDS SUMMARY | 2024-11-13 20:03 | XMS_ITS | Encounter Summary ---
Author Organization [facility] Address [address] [place] [address] Care Team Providers Care Superintendent Gas Distribution Name Role Phone Shaheen Pollard MD Primary Care Provider [phone] Encounter Details Date Type Department Care Team (Late Contact Info) Description 08/17/2022 Abstract [facility] [address] [place] [address] Josesito Sagastume DO [address] [place], [facility] Social History Tobacco Use Types Packs/Day Years Used Date Smoking Tobacco: Never Tobacco Cessation:Counseling Given: Not Answered Alcohol Use Standard Drinks/Week Comments Yes 0 (1 standard drink = 0.6 oz pur e alcohol) Comments Unknown Sex and Gender Information Value Date Recorded Sex Assigned at Female 11/03/2022 8:21 AM EDT Legal Sex Female 11:47 PM EDT Gender Identity Female 11/03/2022 8:21 AM EDT Sexual Orientation Straight 11/03/2022 8: 21 AM EDT documented as of this encounter Plan of Treatment Upcoming Encounters Date Type Department Care Team (Late Contact Info) Description 11/18/2025 11:00 AM EDT Procedure Visit [facility] [address] [place] [address] Josesito Sagastume DO [address] [place], [facility] documented as of this encounter Visit Diagnoses Not on filedocumented in this encounter Care Teams Superintendent Gas Distribution Relationship Specialty Start Date End Date Shaheen Pollard MD [address] [place] [address] PCP - General Family Medicine 11/03/22 documented as of this encounter
[2024-11-19 08:09] LABS: Age Gdln ACOG Testing Note (.); IGP, Aptima HPV, rfx 16/18,45 Note (.)
== END 2024-11-13 20:01 | disposition home or self-care (01) ==
LOC: LAB 20:00
PROVIDERS: PCP Obstetrics & Gynecology; Visit Provider Obstetrics & Gynecology
DX: Z01.419 Encounter for gynecological examination (general) (routine) without abnormal findings (principal)
CPT/HCPCS: 87624; 88175